=== PATIENT | female | born 1960 | race Caucasian/White ===

== ENCOUNTER 2016-12-08 08:32 | Day surgery (SDC) | payer OTHER ==
[~2016-12-08] VITALS: Ht 167.6 cm; Wt 102.7 kg
[~2016-12-08 08:32] MED LIST: ACET1TAB42 PO; ALBU8.5H2 INHALATION; CHOL10008 PO; DIPH25CA6 PO; MULT-666 PO; nitroquick SL
[2016-12-08] MEDS ORDERED: Iohexol 240 mg/mL 10 mL Inj ONE (08:33)
[2016-12-08] MEDS ORDERED: Bupivacaine-MPF 0.25% 30 mL Inj ONE (08:33)
[2016-12-08] MEDS ORDERED: MethylprednisoLONE Depot 80 mg/mL Inj ONE (08:33)
[2016-12-08 08:53] VITALS: BP 130/79; PULSE 69; RESP 14; O2SAT 98
--- NOTE | 2016-12-08 11:25 | PCM.PROC ---
Procedure Note Date of Service: Dec 08, 2016 Pre Procedure Diagnosis: PROCEDURE: LEFT Sacroiliac joint injection (fluoroscopically guided) PRE-PROCEDURE DIAGNOSIS: Sacroiliitis POST-PROCEDURE DIAGNOSIS: same INDICATION: T6-year-old female with posterior hip pain, suggestive of sacroiliitis ASA / ANTICOAGULATION: No asa x 7 days PERFORMED BY: Solomon Boland MD DESCRIPTION OF PROCEDURE: Patient was met in the holding area. Consent was signed, site was confirmed and all questions were answered. Patient was taken to the procedure suite and placed prone on the procedure table. Local anesthesia with 1% lidocaine was injected into the epidermidis and dermis. A 22-gauge Quincke spinal needle was advanced towards the sacroiliac joint after visualization was optimized fluoroscopically in the AP view. Proper positioning in the joint was confirmed by injecting contrast. We then took a lateral view to reconfirm proper positioning in the sacroiliac joint. 80mg depomedrol with 2 cc of 0.25% Bupivicaine injected without difficulty. ANESTHESIA: Local. EBL: None. No Blood Products Used COMPLICATIONS: None SPECIMENS: None POST-PROCEDURE DISPOSITION: Patient tolerated the procedure well was returned to the holding area in stable condition. They were discharged home when all discharge criteria were met. Fluro time: See Radiology Report Evaluation/Physical Exam before discharge revealed: DISCHARGE MEDICATIONS: none FOLLOW UP: Keep appointment for RIGHT sacroiliac joint injection Of note, patient has VERY low pain tolerance and had pain exacerbation after the uneventful injection. She reports having this same reaction to her previous otherwise uneventful epidural steroid injection by another local pain physician. I wonder if she may have severe fibromyalgia? Solomon Boland MD * Pain Management * Anesthesiology Solomon Boland MD Dec 08, 2016 11:25
== END 2016-12-08 23:59 | disposition home or self-care (01) ==
LOC: END 08:32
PROVIDERS: ATTEND Anesthesiology Pain Medicine
DX: M46.1 Sacroiliitis, not elsewhere classified (principal)

== ENCOUNTER 2016-12-22 08:55 | Day surgery (SDC) | payer OTHER ==
[~2016-12-22] VITALS: Ht 167.6 cm; Wt 103.0 kg
[2016-12-22] MEDS ORDERED: Bupivacaine-MPF 0.25% 30 mL Inj ONE (08:56)
[2016-12-22] MEDS ORDERED: MethylprednisoLONE Depot 80 mg/mL Inj ONE (08:56)
[2016-12-22] MEDS ORDERED: Iohexol 240 mg/mL 10 mL Inj ONE (08:56)
[2016-12-22 09:13] VITALS: BP 127/80; PULSE 62; RESP 18; O2SAT 95
--- NOTE | 2016-12-22 14:55 | PCM.PROC ---
Procedure Note Date of Service: Dec 22, 2016 Pre Procedure Diagnosis: PROCEDURE: RIGHT Sacroiliac joint injection (fluoroscopically guided) PRE-PROCEDURE DIAGNOSIS: Sacroiliitis POST-PROCEDURE DIAGNOSIS: same INDICATION: 56-year-old patient with posterior hip pain, suggestive of sacroiliitis ASA / ANTICOAGULATION: No asa x 7 days PERFORMED BY: Solomon Boland MD DESCRIPTION OF PROCEDURE: Patient was met in the holding area. Consent was signed, site was confirmed and all questions were answered. Patient was taken to the procedure suite and placed prone on the procedure table. Local anesthesia with 1% lidocaine was injected into the epidermidis and dermis. A 22-gauge Quincke spinal needle was advanced towards the sacroiliac joint after visualization was optimized fluoroscopically in the AP view. Proper positioning in the joint was confirmed by injecting contrast. We then took a lateral view to reconfirm proper positioning in the sacroiliac joint. 80mg depomedrol with 2 cc of 0.25% Bupivicaine injected without difficulty. ANESTHESIA: Local. EBL: None. No Blood Products Used COMPLICATIONS: None SPECIMENS: None POST-PROCEDURE DISPOSITION: Patient tolerated the procedure well was returned to the holding area in stable condition. They were discharged home when all discharge criteria were met. Fluro time: See Radiology Report Evaluation/Physical Exam before discharge revealed: DISCHARGE MEDICATIONS: none FOLLOW UP: Followup with Oni Lopez in4-6 weeks Solomon Boland MD * Pain Management * Anesthesiology Solomon Boland MD Dec 22, 2016 14:55
== END 2016-12-22 23:59 | disposition home or self-care (01) ==
LOC: END 08:55
PROVIDERS: ATTEND Anesthesiology Pain Medicine
DX: M46.1 Sacroiliitis, not elsewhere classified (principal)
CPT/HCPCS: G0260; J1040